=== PATIENT | female | born 1945 | race Caucasian/White ===

== ENCOUNTER 2016-07-17 19:33 | Inpatient (IN) | payer MEDICARE, OTHER ==
--- NOTE | ~2016-07-17 | DS ---
Discharge Summary [id number] [place]. [address] NAME: SELENE MESSER : 47 STATUS : DIS IN PAT#: [id number] AGE: 71 ADM/REG DATE : 07/17/16 MR#: [id number] REPORT SERV DATE: 07/23/16 DICTATED BY: JOAQUIN FIGUEROA DATE: 07/21/16 REPORT STATUS : Draft TRANSCRIBED BY: MODL DATE: 07/21/16 ADMISSION DATE: 07/17/2016 DISCHARGE DATE: 07/21/2016 DISCHARGE DIAGNOSES: 1. Hypoxic respiratory failure. 2. Sepsis, present on admission. 3. Hypokalemia, now resolved. 4. Diastolic heart failure, acute on chronic, currently improving. 5. Schizoaffective disorder. 6. Hypothyroidism. 7. Possible chronic obstructive pulmonary disease. 8. Bilateral cerumen impaction. 9. Urinary retention, currently resolved. 10.Hypertension. 11.Anxiety disorder. 12.Chronic pain syndrome. 13.Tobacco abuse with a history. 14.Community-acquired pneumonia. CONSULTANTS DURING THIS HOSPITALIZATION: None. INVASIVE PROCEDURES DONE DURING THIS HOSPITALIZATION: None. BRIEF HPI: The patient is a 71-year-old female, presented with shortness of breath for last two weeks, so she was admitted. For detailed history and physical exam, please see note dictated by Dr. Adolfo Leija on 07/17/2016. HOSPITAL COURSE: After being admitted to the hospital, this patient was given initial broad- spectrum antibiotics. She was thought to have sepsis. Her blood cultures remained negative and her sepsis seems to have resolved. She was noted to have an infiltrate on the chest x- ray and was thought to have a community-acquired pneumonia, and she was given appropriate and antibiotics including Rocephin and Zithromax. Over time, she continued to do well. She finished a full seven-day course of her antibiotics. She had a mildly elevated BMP. She received several doses of IV Lasix and that seemed to have improved her venous congestion. All other parameters remained stable. She was ambulatory. We have been able to successfully wean her off the oxygen. She is saturating about 92% on room air. At this time, she is stable and is being discharged in stable condition. We did do a two- dimensional echocardiogram which showed a normal ejection fraction of about 55% to 60% without significant valvular heart disease. DISCHARGE DISPOSITION: Home. DISCHARGE ACTIVITY: As tolerated. DISCHARGE DIET: Low sodium diet. Discharge Summary [place] [address] [address] [address] NAME: SELENE MESSER : 47 STATUS : DIS IN PAT#: [id number] AGE: 71 ADM/REG DATE : 07/17/16 MR#: [id number] REPORT SERV DATE: 07/23/16 DICTATED BY: JOAQUIN FIGUEROA DATE: 07/21/16 REPORT STATUS : Draft TRANSCRIBED BY: NAKITA DATE: 07/21/16 DISCHARGE MEDICATIONS: Norvasc 5 mg one tablet daily, Caltrate 600 mg one tablet twice daily, gabapentin 100 mg three times daily, Lamictal 150 mg once daily, levothyroxine 75 mcg once daily, Lopressor 25 mg twice daily, Zyprexa 20 mg once daily, Protonix 40 mg once at bedtime, Requip 4 mg three times daily, enalapril 20 mg once daily. DISCHARGE FOLLOWUP: With Dr. José Luis Steiner in one week, with ENT in one week for removal of impacted cerumen. More than 30 minutes spent planning this patient's discharge, reconciling medications, writing prescriptions, discussing hospital care, and follow up with the patient and documenting this discharge. JOVANNA/NAKITA Joaquin Figueroa M.D. / [id number] CC: Rula Daniel M.D.
--- NOTE | ~2016-07-17 | HP ---
History And Physical [address] [place]. [address] NAME: SELENE MESSER : 47 STATUS : ADM IN [facility]#: [id number] AGE: 71 ADM/REG DATE : 07/17/16 MR#: [id number] REPORT SERV DATE: 07/18/16 DICTATED BY: RENARD MORRIS DATE: 07/18/16 REPORT STATUS : Draft TRANSCRIBED BY: MODL DATE: 07/18/16 DATE OF ADMISSION: 07/17/2016 CHIEF COMPLAINT: Shortness of breath x2 weeks. HISTORY OF PRESENT ILLNESS: The patient is a 71-year-old female with past medical history of schizoaffective disorder, anxiety, chronic pain syndrome, tobacco use history who comes in after having shortness of breath times last 2 weeks that has been continuous, constant moderate severity, no pain radiating symptoms but has had cough production. No nausea, vomiting, or headache. She denies any fevers or chills but did have more shortness of breath. No palpitations, redness, or dizziness. Symptoms are worsened with exertion. There are no relieving symptoms, symptoms still currently present. The patient was noted to be mildly hypoxic with cough. Symptoms are also worse when she is lying down. The patient has variable p.o. intake recently. REVIEW OF SYSTEMS: Additional ten point review of systems are negative except for that noted in the HPI. PAST MEDICAL HISTORY: As noted above. SURGICAL HISTORY: Right humeral fracture repair, appendectomy, prior breast biopsy. FAMILY HISTORY: CHF, heart disease. SOCIAL HISTORY: Lives in a senior living, used to be [facility]. Quit drinking 10 years ago but was a prior heavy drinker, has stopped smoking but had a long history of smoking and vapor. ALLERGIES: HYDROXYZINE, DIAZEPAM, AND MORPHINE. HOME MEDICATIONS: Norvasc, Caltrate, enalapril, Neurontin, Lamictal, Synthroid, Lopressor, Naprosyn, Zyprexa, Protonix, Requip. EKG; sinus tachycardia with a rate of 115, QTc 439. PHYSICAL EXAMINATION: VITAL SIGNS: The patient blood pressure 146/82, that changed to 97/52, temperature 98.6, pulse 118, respirations down to 16, O2 saturations 95% on 2 L. GENERAL: Elderly but no acute distress. EYES: No scleral icterus. EOMI. ENT: Poor dentition but dry mucous membranes. RESPIRATORY: Mildly polyphonic breath sounds. No wheeze. CV: Mildly tachycardic. No rubs. GI: Soft, nontender, nondistended. Bowel sounds positive. : Deferred. MUSCULOSKELETAL: Moves all extremities x4. SKIN: Mild skin tenting. Dry. History And Physical [address] [place] [facility] [address] NAME: SELENE MESSER : 47 STATUS : ADM IN [facility]#: [id number] AGE: 71 ADM/REG DATE : 07/17/16 MR#: [id number] REPORT SERV DATE: 07/18/16 DICTATED BY: RENARD MORRIS DATE: 07/18/16 REPORT STATUS : Draft TRANSCRIBED BY: NAKITA DATE: 07/18/16 LYMPH: No pedal edema. HEME: No bleeding or bruising. NEURO: Alert and oriented x3. Moves all extremities. Symmetrical smile. PSYCH: Appropriate mood and affect. Pleasant. LABORATORY DATA: AB.42, pCO2 of 35, pO2 of 66, bicarb 22.3. CBC: WBC count 16.9, H and H 13.3 and 38.1, MCV 88.2, platelets 239. INR 1.1. CMP: Sodium 133, potassium 3.1, chloride 97, bicarb 26, BUN and creatinine 8 and 0.76, glucose 126. LFTs within normal limits. Troponin negative. BNP 218.3 and lactate 0.8. Chest x-ray shows mild hilar infiltrations, official report still pending. ASSESSMENT AND PLAN: 1. Community-acquired pneumonia. 2. Sepsis present on arrival,. 3. Hypokalemia. 4. Elevated BNP. 5. Hypoxia. 6. Hypotension. PLAN: 1. For community-acquired pneumonia; check cultures, urine studies. Rocephin and azithromycin started in emergency room. IV fluids. The patient is clinically volume depleted although does have mildly elevated BNP. We will need to monitor and check echocardiogram for this. 2. Sepsis; lactate within normal limits but did have tachycardia, tachypnea, and leukocytosis. Rocephin and azithromycin initiated for suspected community-acquired pneumonia. The patient has had sputum production and shortness of breath over the last two weeks. Monitor clinically. Urine studies also ordered. 3. Hypokalemia, replaced per protocol. 4. Elevated BNP. Check echocardiogram. 5. Hypoxia, treat community-acquired pneumonia. 6. Hypotension. The patient responded with gentle IV fluids and IV albumin with MAP maintaining greater than 60 continuously and mental status still at baseline, alert, joking manner, and calm. We will monitor on telemetry. All questions answered to the patient and family at bedside. DDN/MODL Renard Morris MD / [id number] CC: History And Physical [address] [address] NAME: SELENE MESSER : [birth year] STATUS : ADM IN [facility]#: [id number] AGE: 71 ADM/REG DATE : 07/17/16 MR#: [id number] REPORT SERV DATE: 07/18/16 DICTATED BY: RENARD MORRIS DATE: 07/18/16 REPORT STATUS : Draft TRANSCRIBED BY: MODL DATE: 07/18/16 Joaquin Figueroa M.D.
[2016-07-17 19:17] LABS: ALLENS TEST Pos; BE (BASE EXCESS) -1.5 MEQ/L (0 +/- 2.5); CARBOXYHEMOGLOBIN 1.8 % (0-3); DEVICE NC; HCO3 (ACTUAL BICARBONATE) 22.3 MEQ/L (23-27); HEMOBLOGIN CONTENT 13.7 G/DL (12-16); INSTRUMENT SERIAL # 8087; METHEMOGLOBIN 0.1 % (0-3); O2 CONTENT 17.5 VOL% (18-24); OPERATOR ID 33449; PCO2 (CO2 TENSION) 35 MMHG (35-45); PO2 (O2 TENSION) 66 MMHG (79-93); SAMPLE Arterial; pH 7.42 (7.37-7.43)
[~2016-07-17 19:33] MED LIST: AMLODIPINE BESYLATE PO; ASA5GR PO; ATV1 PO; COG0.5 PO; COG2 PO; COGEN1 PO; FOS10 PO; IBU400 PO; L40 PO; LAMICTAL XR200 MG PO; LAMICTAL200 MG PO; LEVOTHYROXIN50 MCG PO; LEVOTHYROXIN75 MCG PO; LIPITOR80 MG PO; LORTAB 5 PO; MOTRIN IB200 MG PO; NORCO1 TAB PO; OLANZAPINE PO; OS500+D PO; OXYCOD PO; PRILOSEC40 MG PO; PROTONIX PO; SYN.025B PO; VASOTEC10 PO; VASOTEC20 MG PO; ZYPREXA10 MG PO
[2016-07-17] MEDS ORDERED: NEUR100 PO (21:05)
[2016-07-17] MEDS ORDERED: REQUIP4 MG PO (21:05)
[2016-07-17] MEDS ORDERED: NAP500 PO (21:05)
[2016-07-17] MEDS ORDERED: LOP25 PO (21:06)
[2016-07-17] MEDS ORDERED: PROTONIX PO (21:07)
[2016-07-17] MEDS ORDERED: ZYPREXA10 MG PO (21:07)
[2016-07-17] MEDS ORDERED: LAMICTAL150 MG PO (21:07)
[2016-07-17] MEDS ORDERED: NORV5 PO (21:08)
[2016-07-17] MEDS ORDERED: SYN075 PO (21:08)
[2016-07-17] MEDS ORDERED: VASOTEC20 MG PO (21:08)
[2016-07-17] MEDS ORDERED: CALTRAT600 PO (21:08)
[2016-07-17 21:20] LABS: BASOPHILS 0.1 %; BASOPHILS ABSOLUTE 0.02 10/3/uL (0.0-0.16); EOSINOPHILS 0.2 %; EOSINOPHILS ABSOLUTE 0.03 10/3/uL (0.0-0.53); HEMATOCRIT 38.1 % (36.0-48.0); HEMOGLOBIN 13.3 g/dL (12.0-16.0); IMMATURE GRANULOCYTES 0.4 %; IMMATURE GRANULOCYTES ABSOLUTE 0.06 10/3/uL (0.0-0.11); LYMPHOCYTES 10.8 %; LYMPHOCYTES ABSOLUTE 1.83 10/3/uL (0.67-4.30); MEAN CORPUS HGB CONC 34.9 g/dL (32.0-36.0); MEAN CORPUSCULAR HEMOGLOB 30.8 pg (26.0-34.0); MEAN PLATELET VOLUME 9.2 fL (9.2-13.0); MONOCYTES 9.3 %; MONOCYTES ABSOLUTE 1.57 10/3/uL (0.21-1.20); NEUTROPHILS 79.2 %; PLATELET COUNT 239 10/3/uL (150-400); RBC DISTRIBUTION WIDTH 11.9 % (12.0-16.0); RED CELL COUNT 4.32 10/6/uL (4.0-5.6)
[2016-07-17 21:21] LABS: ER CBC TAT 0 Hrs 05 Mins; MANUAL DIFF NO %; MEAN CORPUSCULAR VOLUME 88.2 fL (80-100); WHITE BLOOD CELLS 16.9 10/3/uL (4.5-10.5)
[2016-07-17 21:27] LABS: INTERNATIONAL NORMAL RATI 1.1 UNITS (-)
[2016-07-17 21:38] LABS: A/G RATIO 0.7 (0.7-1.9); ALBUMIN 3.3 G/DL (3.5-5.0); ALKALINE PHOSPHATASE 91 U/L (45-117); BUN (BLOOD UREA NITROGEN) 8 MG/DL (6-23); CALCIUM, SERUM 8.9 MG/DL (8.5-10.4); CHLORIDE, SERUM 97 MMOL/L (96-112); CO2 (CARBON DIOXIDE) 26 MMOL/L (24-34); CREATININE 0.76 MG/DL (0.55-1.02); GFR AFRICAN AMERICAN 92 ML/MIN (>=60); GFR NON AFRICAN AMERICAN 79 ML/MIN (>=60); GLUCOSE, SERUM 126 MG/DL (60-99); SGOT(AST) 9 U/L (5-40); SGPT(ALT) 10 U/L (5-65); SODIUM, SERUM 133 MMOL/L (135-148); TOTAL BILIRUBIN 0.8 MG/DL (0-1.2); TOTAL PROTEIN 8.2 G/DL (6.0-8.5); TROPONIN I <0.02 NG/ML (<0.05)
[2016-07-17 21:39] LABS: GLOBULIN 4.9 G/DL (2.5-4.1); POTASSIUM, SERUM 3.1 MMOL/L (3.5-5.3)
[2016-07-18 07:31] LABS: BASOPHILS 0.3 %; BASOPHILS ABSOLUTE 0.05 10/3/uL (0.0-0.16); EOSINOPHILS 0.2 %; EOSINOPHILS ABSOLUTE 0.03 10/3/uL (0.0-0.53); HEMATOCRIT 34.9 % (36.0-48.0); IMMATURE GRANULOCYTES ABSOLUTE 0.19 10/3/uL (0.0-0.11); LYMPHOCYTES 14.5 %; LYMPHOCYTES ABSOLUTE 2.82 10/3/uL (0.67-4.30); MEAN CORPUS HGB CONC 34.4 g/dL (32.0-36.0); MEAN CORPUSCULAR HEMOGLOB 30.1 pg (26.0-34.0); MEAN CORPUSCULAR VOLUME 87.5 fL (80-100); MONOCYTES ABSOLUTE 1.55 10/3/uL (0.21-1.20); NEUTROPHILS ABSOLUTE 14.79 10/3/uL (2.02-8.40); RED CELL COUNT 3.99 10/6/uL (4.0-5.6); WHITE BLOOD CELLS 19.4 10/3/uL (4.5-10.5)
[2016-07-18 07:35] LABS: MANUAL DIFF NO %; PLATELET COUNT 163 10/3/uL (150-400)
[2016-07-18 08:24] LABS: LACTATE 0.8 MMOL/L (0.3-2.4)
[2016-07-18 08:29] LABS: A/G RATIO 0.7 (0.7-1.9); ALBUMIN 2.9 G/DL (3.5-5.0); ALKALINE PHOSPHATASE 81 U/L (45-117); BUN (BLOOD UREA NITROGEN) 10 MG/DL (6-23); CALCIUM, SERUM 8.3 MG/DL (8.5-10.4); CHLORIDE, SERUM 98 MMOL/L (96-112); CO2 (CARBON DIOXIDE) 23 MMOL/L (24-34); CREATININE 0.67 MG/DL (0.55-1.02); GFR AFRICAN AMERICAN 103 ML/MIN (>=60); GFR NON AFRICAN AMERICAN 89 ML/MIN (>=60); GLOBULIN 4.2 G/DL (2.5-4.1); GLUCOSE, SERUM 138 MG/DL (60-99); SGOT(AST) 9 U/L (5-40); SGPT(ALT) 7 U/L (5-65); SODIUM, SERUM 133 MMOL/L (135-148); TOTAL BILIRUBIN 0.7 MG/DL (0-1.2); TOTAL PROTEIN 7.1 G/DL (6.0-8.5)
[2016-07-18 08:30] LABS: ULTRASENSITIVE TSH 0.318 MCIU/ML (0.358-3.740)
[2016-07-18 08:33] LABS: PLATELET ESTIMATE ADQ (ADEQUATE)
[2016-07-18 08:34] LABS: RBC MORPHOLOGY NORM (NORMAL); TOXIC GRANULATION 1+
[2016-07-18 09:11] LABS: ASCORBIC ACID (UR NOT ORDER) NEG (NEG); BILIRUBIN, URINE NEGATIVE (NEG); KETONE, URINE NEGATIVE (NEG); LEUKOCYTE ESTERASE(NOT OR MOD (NEG); WBC (NOT ORDERED) (RFLEX) 9 (0-5)
[2016-07-18 12:12] LABS: TROPONIN I <0.02 NG/ML (<0.05)
[2016-07-19 07:09] LABS: HEMOGLOBIN 11.9 g/dL (12.0-16.0); MEAN CORPUSCULAR HEMOGLOB 30.1 pg (26.0-34.0); MEAN CORPUSCULAR VOLUME 88.6 fL (80-100); MEAN PLATELET VOLUME 9.2 fL (9.2-13.0); RBC DISTRIBUTION WIDTH 12.1 % (12.0-16.0); RED CELL COUNT 3.95 10/6/uL (4.0-5.6); WHITE BLOOD CELLS 12.3 10/3/uL (4.5-10.5)
[2016-07-19 07:11] LABS: MANUAL DIFF YES %; PLATELET COUNT 242 10/3/uL (150-400)
[2016-07-19 07:22] LABS: BUN (BLOOD UREA NITROGEN) 7 MG/DL (6-23); CALCIUM, SERUM 8.4 MG/DL (8.5-10.4); CHLORIDE, SERUM 97 MMOL/L (96-112); CO2 (CARBON DIOXIDE) 24 MMOL/L (24-34); CREATININE 0.54 MG/DL (0.55-1.02); GFR AFRICAN AMERICAN 111 ML/MIN (>=60); GFR NON AFRICAN AMERICAN 96 ML/MIN (>=60); POTASSIUM, SERUM 4.6 MMOL/L (3.5-5.3); SODIUM, SERUM 128 MMOL/L (135-148)
[2016-07-19 07:23] LABS: GLUCOSE, SERUM 109 MG/DL (60-99)
[2016-07-19 07:46] LABS: BAND NEUTROPHILS 2 %; EOSINOPHILS 2 %; EOSINOPHILS ABSOLUTE (CALC) 0.25 10/3/uL (0.0-0.53); LYMPHOCYTES 7 %; LYMPHOCYTES ABSOLUTE (CALC) 0.86 10/3/uL (0.67-4.30); MONOCYTES 5 %; MONOCYTES ABSOLUTE (CALC) 0.62 10/3/uL (0.21-1.20); NEUTROPHILS ABSOLUTE (CALC) 10.58 10/3/uL (2.02-8.40); PLATELET ESTIMATE ADQ (ADEQUATE); RBC MORPHOLOGY NORM (NORMAL); SEGMENTED NEUTROPHIL (0) 84 %; TOTAL NUCLEATED CELLS 100
[2016-07-20 07:44] LABS: BASOPHILS 0.2 %; BASOPHILS ABSOLUTE 0.02 10/3/uL (0.0-0.16); EOSINOPHILS 2.5 %; EOSINOPHILS ABSOLUTE 0.22 10/3/uL (0.0-0.53); HEMOGLOBIN 11.9 g/dL (12.0-16.0); IMMATURE GRANULOCYTES ABSOLUTE 0.09 10/3/uL (0.0-0.11); LYMPHOCYTES 18.2 %; LYMPHOCYTES ABSOLUTE 1.58 10/3/uL (0.67-4.30); MANUAL DIFF NO %; MEAN CORPUSCULAR HEMOGLOB 30.2 pg (26.0-34.0); MEAN CORPUSCULAR VOLUME 88.8 fL (80-100); MEAN PLATELET VOLUME 8.9 fL (9.2-13.0); MONOCYTES 7.7 %; MONOCYTES ABSOLUTE 0.67 10/3/uL (0.21-1.20); NEUTROPHILS 70.4 %; PLATELET COUNT 260 10/3/uL (150-400); RBC DISTRIBUTION WIDTH 11.9 % (12.0-16.0); RED CELL COUNT 3.94 10/6/uL (4.0-5.6); WHITE BLOOD CELLS 8.7 10/3/uL (4.5-10.5)
[2016-07-20 07:57] LABS: BUN (BLOOD UREA NITROGEN) 6 MG/DL (6-23); CALCIUM, SERUM 8.7 MG/DL (8.5-10.4); CHLORIDE, SERUM 99 MMOL/L (96-112); CO2 (CARBON DIOXIDE) 28 MMOL/L (24-34); CREATININE 0.65 MG/DL (0.55-1.02); GFR AFRICAN AMERICAN 104 ML/MIN (>=60); GFR NON AFRICAN AMERICAN 90 ML/MIN (>=60); POTASSIUM, SERUM 4.2 MMOL/L (3.5-5.3); SODIUM, SERUM 131 MMOL/L (135-148)
[2016-07-20 07:59] LABS: GLUCOSE, SERUM 87 MG/DL (60-99)
[2016-07-21 05:59] LABS: HEMATOCRIT 34.4 % (36.0-48.0); HEMOGLOBIN 11.6 g/dL (12.0-16.0); MEAN CORPUS HGB CONC 33.7 g/dL (32.0-36.0); MEAN CORPUSCULAR HEMOGLOB 30.1 pg (26.0-34.0); MEAN CORPUSCULAR VOLUME 89.1 fL (80-100); PLATELET COUNT 292 10/3/uL (150-400); RBC DISTRIBUTION WIDTH 11.9 % (12.0-16.0); RED CELL COUNT 3.86 10/6/uL (4.0-5.6); WHITE BLOOD CELLS 8.6 10/3/uL (4.5-10.5)
[2016-07-21 06:02] LABS: MANUAL DIFF YES %
[2016-07-21 06:10] LABS: ALBUMIN 2.8 G/DL (3.5-5.0); BUN (BLOOD UREA NITROGEN) 9 MG/DL (6-23); CALCIUM, SERUM 8.8 MG/DL (8.5-10.4); CHLORIDE, SERUM 98 MMOL/L (96-112); CO2 (CARBON DIOXIDE) 28 MMOL/L (24-34); CREATININE 0.67 MG/DL (0.55-1.02); GFR AFRICAN AMERICAN 103 ML/MIN (>=60); GFR NON AFRICAN AMERICAN 89 ML/MIN (>=60); GLUCOSE, SERUM 95 MG/DL (60-99); PHOSPHORUS, SERUM 2.7 MG/DL (2.5-4.5); POTASSIUM, SERUM 4.3 MMOL/L (3.5-5.3); SODIUM, SERUM 131 MMOL/L (135-148)
[2016-07-21 06:20] LABS: BAND NEUTROPHILS 6 %; IMMATURE GRANS ABSOLUTE (CALC) 0.26 10/3/uL (0.0-0.11); LYMPHOCYTES 22 %; LYMPHOCYTES ABSOLUTE (CALC) 1.89 10/3/uL (0.67-4.30); METAMYELOCYTES 3 %; MONOCYTES 3 %; MONOCYTES ABSOLUTE (CALC) 0.26 10/3/uL (0.21-1.20); NEUTROPHILS ABSOLUTE (CALC) 6.19 10/3/uL (2.02-8.40); PLATELET ESTIMATE ADQ (ADEQUATE); SEGMENTED NEUTROPHIL (0) 66 %; TOTAL NUCLEATED CELLS 100
[2016-07-21 06:21] LABS: TOXIC GRANULATION SLT
[2016-07-21] MEDS ORDERED: PROVHFA INH (11:42)
[2016-07-21] MEDS ORDERED: L20 PO (11:42)
== END 2016-07-21 13:45 | disposition home or self-care (01) | DRG 871 ==
LOC: ER 19:33 → 4SO 23:24
PROVIDERS: Emergency Medicine; Internal Medicine; Nurse Practitioner; Student in an Organized Health Care Education/Training Program
DX: A41.9 Sepsis, unspecified organism (principal); J18.9 Pneumonia, unspecified organism; J96.91 Respiratory failure, unspecified with hypoxia; I50.33 Acute on chronic diastolic (congestive) heart failure; I11.0 Hypertensive heart disease with heart failure; J44.0 Chronic obstructive pulmonary disease with (acute) lower respiratory infection; E87.1 Hypo-osmolality and hyponatremia; G89.4 Chronic pain syndrome; Z87.891 Personal history of nicotine dependence; F25.9 Schizoaffective disorder, unspecified; Z88.5 Allergy status to narcotic agent; Z88.8 Allergy status to other drugs, medicaments and biological substances; E87.6 Hypokalemia; E03.9 Hypothyroidism, unspecified; H61.23 Impacted cerumen, bilateral; R33.8 Other retention of urine; F41.9 Anxiety disorder, unspecified; R65.20 Severe sepsis without septic shock
CPT/HCPCS: 36600; 71010; 71020; 80048; 80053; 80069; 81001; 82805; 83605; 83735; 83880; 84132; 84145; 84443; 84484; 85025; 85610; 87040; 87070; 87086; 87205; 87449; 93005; 93306; 94640; 96365; 96375; 97161-GP; 99285; A9270-GY; G8978-CK-GP; G8979-CK-GP; G8980-CK-GP; J0456; J1170; J1940; J2405; J3486; P9047